=== PATIENT | female | born 1955 | race Two or more races ===

== ENCOUNTER 2021-10-05 01:11 | Emergency (ER) | payer BC ==
[~2021-10-05] VITALS: Ht 170.2 cm; Wt 84.1 kg
[2021-10-05 02:13] VITALS: BP 153/89
[2021-10-05] MEDS: HYDROcodone/acetaminophen 10/325mg tab PO ONE (03:23)
[2021-10-05] MEDS: ketorolac trometh. 30mg/ml inj. IM ONE (03:24)
[2021-10-05] MEDS: morphine 4 MG/ML inj SYRINge IM ONE (03:26)
[2021-10-05] MEDS ORDERED: OXYC-150 PO (03:49)
== END 2021-10-05 04:20 | disposition home or self-care (01) ==
LOC: ER 01:12
DX: S22.32XA Fracture of one rib, left side, initial encounter for closed fracture (principal); R07.89 Other chest pain; Z79.899 Other long term (current) drug therapy; X58.XXXA Exposure to other specified factors, initial encounter; Y93.89 Activity, other specified; Y92.89 Other specified places as the place of occurrence of the external cause; Y99.8 Other external cause status
CPT/HCPCS: 71046; 72100; 73610; 73630; 96372; 99284; J1885; J2270

== ENCOUNTER 2021-10-17 11:14 | Emergency (ER) | payer BC ==
[~2021-10-17] VITALS: Ht 170.2 cm; Wt 86.4 kg
[~2021-10-17 11:14] MED LIST: OXYC-150 PO
[2021-10-17 11:16] VITALS: BP 123/89
[2021-10-17] MEDS ORDERED: bisacodyl 5mg tablet.DR PO ONE (12:15)
[2021-10-17] MEDS ORDERED: LIDOcaine Viscous 15ml cup MM ONE (12:15)
[2021-10-17] MEDS ORDERED: POLY119P2 PO (12:50)
[2021-10-17] MEDS ORDERED: BISA-78 PO (12:50)
== END 2021-10-17 14:31 | disposition home or self-care (01) ==
LOC: ER 11:14
DX: K59.00 Constipation, unspecified (principal)
CPT/HCPCS: 99284